=== PATIENT | male | born 1950 | race Caucasian/White ===

== ENCOUNTER → 2018-01-30 | Outpatient (CLI) | payer OTHER ==
[~2018-01-30] VITALS: Ht 177.8 cm; Wt 136.1 kg
[~2018-01-30] MED LIST: COZAAR 50 MG TA50 MG PO; ELIQUIS5 M1 PO; GLUCOPHAGE XR750 MG PO; LIPITOR80 MG PO; NEURONTIN 300300 M1 PO; ONGLYZA5 MG PO; TAPAZOLE5 MG PO; TOPROL XL25 MG PO; VICTOZA0.6 MG/0.1 SUBQ; ZPAK PO; [UNRECOGNIZED DRUG - OTHER]
--- NOTE | ~2018-01-30 | P ---
[facility] [place] [address] PROCEDURE REPORT Name: VICTOR HUGO LOUIE Room #: REG [facility]#: [id number] Admission: 01/30/18 Attend Phys: Kurt Sarmiento MD Discharge: Date of : 50 Report #: [id number] THIS REPORT FOR: //name// CC: Cristian Sarmiento HISTORY: The patient is a 68-year-old male with a longstanding history of atrial fibrillation who is here for an attempt at cardioversion after being loaded with amiodarone. ANESTHESIA: The patient underwent MAC anesthesia performed by the Anesthesiology Service. DESCRIPTION OF PROCEDURE: The patient was prepped in a standard fashion. He was sedated by the Anesthesiology Service. Once sedated, he underwent three attempts at cardioversion at 200 joules with no orthodox of sinus rhythm. As such, the procedure was concluded. CONCLUSIONS: Unsuccessful DC cardioversion in a patient with longstanding atrial fibrillation and recent initiation of amiodarone therapy. PLAN: Given the duration of his AFib, which appears to have been going on for years, we will transition to a rate control strategy. By: 1649 01 Kurt Sarmiento MD /nt
[2018-01-30 07:49] VITALS: BP 121/74
[2018-01-30 08:00] LABS: HEMATOCRIT 46.1 % (42.0-52.0); HEMOGLOBIN 16.1 gm/dL (14.0-18.0); MCH 27.3 pg (26.0-34.0); MCHC 34.8 g/dL (28.0-37.0); MCV 78.4 fL (80.0-100.0); RBC 5.88 mil/uL (4.50-6.00); RDW 14.4 % (10.5-14.5)
[2018-01-30 08:13] LABS: APTT 32.2 Seconds (24.5-32.8); INR 1.1; PROTIME 11.7 Seconds (9.3-11.4)
[2018-01-30 08:22] LABS: CALCIUM 8.4 mg/dL (8.5-10.1); CREATININE 1.1 mg/dL (0.7-1.3)
== END | disposition home or self-care (01) ==
LOC: CATH 07:27
PROVIDERS: Internal Medicine Cardiovascular Disease
DX: I48.91 Unspecified atrial fibrillation (principal); I10 Essential (primary) hypertension; E11.9 Type 2 diabetes mellitus without complications; E78.5 Hyperlipidemia, unspecified; G47.33 Obstructive sleep apnea (adult) (pediatric); E66.09 Other obesity due to excess calories; Z98.890 Other specified postprocedural states; Z85.51 Personal history of malignant neoplasm of bladder; Z79.01 Long term (current) use of anticoagulants; Z79.899 Other long term (current) drug therapy; Z79.4 Long term (current) use of insulin; Z82.49 Family history of ischemic heart disease and other diseases of the circulatory system
CPT/HCPCS: 62110; 62900

== ENCOUNTER → 2020-02-20 | Outpatient (CLI) | payer OTHER | LOC: SJCVCIMAG 07:28 | PROVIDERS: ATTEND Internal Medicine Cardiovascular Disease | DX: I08.3 Combined rheumatic disorders of mitral, aortic and tricuspid valves (principal); I11.9 Hypertensive heart disease without heart failure; I48.91 Unspecified atrial fibrillation; I25.10 Atherosclerotic heart disease of native coronary artery without angina pectoris ==

== ENCOUNTER → 2020-03-09 | Outpatient (CLI) | payer OTHER | LOC: SJCVCIMAG 07:34 | PROVIDERS: ATTEND Internal Medicine Cardiovascular Disease | DX: I48.91 Unspecified atrial fibrillation (principal); I10 Essential (primary) hypertension; E78.5 Hyperlipidemia, unspecified; E11.9 Type 2 diabetes mellitus without complications; Z79.4 Long term (current) use of insulin; Z79.899 Other long term (current) drug therapy ==

== ENCOUNTER → 2020-07-16 | Outpatient (CLI) | payer OTHER | LOC: SJCVC 09:49 | PROVIDERS: ATTEND Internal Medicine Cardiovascular Disease | DX: R94.31 Abnormal electrocardiogram [ECG] [EKG] (principal); I48.91 Unspecified atrial fibrillation; G47.33 Obstructive sleep apnea (adult) (pediatric); E11.9 Type 2 diabetes mellitus without complications; D68.59 Other primary thrombophilia; E78.00 Pure hypercholesterolemia, unspecified; I10 Essential (primary) hypertension; N32.9 Bladder disorder, unspecified; R93.1 Abnormal findings on diagnostic imaging of heart and coronary circulation; Z79.899 Other long term (current) drug therapy ==